=== PATIENT | male | born 1950 | race Caucasian/White ===

== ENCOUNTER 2024-02-15 14:23 | Inpatient (IN) | payer OTHER, MEDICARE ==
[2024-02-15] MEDS ORDERED: Glucagon 1 MG/ML KIT IM PRN (18:50)
[2024-02-15] MEDS ORDERED: Ondansetron ODT 4 MG TAB SL PRN (18:52)
[2024-02-15] MEDS ORDERED: Acetaminophen 325 MG TAB PO PRN ×2 (18:52→21:05)
[2024-02-15] MEDS ORDERED: Senokot S 8.6-50 MG TAB PO PRN (18:52)
[2024-02-15] MEDS ORDERED: tiZANidine HCl 4 MG TAB PO PRN (20:52)
[2024-02-15] MEDS ORDERED: traMADol HCl 50 MG TAB PO PRN (20:52)
[2024-02-15] MEDS ORDERED: Artificial Tear Ophth Sol 15 ML BOT EA EYE PRN (21:05)
[2024-02-15] MEDS: Apixaban 5 MG TAB PO SCH (21:40)
[2024-02-15] MEDS: Lantus 1000 UNITS/10 ML VIAL SC SCH (21:40)
[2024-02-15] MEDS: Sucralfate 1 GM TAB PO SCH (21:40)
[2024-02-15] MEDS: Diclofenac 1% 100 GM Topical GEL TP SCH (21:40)
[2024-02-15] MEDS: Nystatin 500,000 UNITS/5 ML UDCUP SSW SCH (21:40)
[2024-02-15] MEDS: HYDROcodone/Acetaminophen 10/325 mg Tablet PO PRN (21:40)
[2024-02-15] MEDS: Atorvastatin Calcium 40 MG TAB PO SCH (21:40)
[2024-02-15] MEDS: Methocarbamol 500 MG TAB PO PRN (21:40)
[2024-02-15] MEDS: CEFAZOLIN 2 GM in Sodium Chloride 0.9% 100 ML IVPB SCH (22:46)
[2024-02-16] MEDS: CEFAZOLIN 2 GM in Sodium Chloride 0.9% 100 ML IVPB SCH (04:02)
[2024-02-16 06:04] LABS: ALT (SGPT) Less than 7 U/L (8-55); AST (SGOT) 12 U/L (5-34); Albumin 1.8 g/dL (3.4-4.8); Alkaline Phosphatase 153 U/L (40-110); Anion Gap 14 mmol/L (10-20); BUN (Urea Nitrogen) 12 mg/dL (8.4-25.7); Bilirubin, Total 0.4 mg/dL (0.2-1.2); Calc. Creatinine Clearance 151 mL/min (70-130); Calcium 8.2 mg/dL (7.8-10.44); Carbon Dioxide 27 mmol/L (23-31); Chloride 96 mmol/L (98-107); Estimated GFR 97; Globulin 4.9 g/dL (2.4-3.5); Glucose 177 mg/dL (83-110); Potassium 3.9 mmol/L (3.5-5.1); Protein, Total 6.7 g/dL (5.8-8.1); Sodium 133 mmol/L (136-145)
[2024-02-16] MEDS: Insulin Lispro 100 UNIT/ML 10 ML VIAL SC PRN (06:05)
[2024-02-16 06:15] LABS: #Basophils 0.1 thou/uL (0.0-0.2); #Eosinophils 0.3 thou/uL (0.0-0.7); #Lymphocytes 1.1 thou/uL (1.20-3.40); #Monocytes 0.9 thou/uL (0.11-0.59); #Neutrophils 8.3 thou/uL (1.40-6.50); %Basophils 1.2 % (0.0-1.0); %Lymphocytes 10.1 % (21.0-51.0); %Monocytes 8.1 % (0.0-10.0); %Neutrophils 77.6 % (42.0-75.0); Hematocrit 27.7 % (42.0-52.0); Hemoglobin 8.1 g/dL (14.0-18.0); Mean Corpuscular HGB CONC 29.4 g/dL (32.0-36.0); Mean Corpuscular Hemoglobin 22.3 pg (27.0-31.0); Mean Corpuscular Volume 75.7 fl (78.0-98.0); Mean Platelet Volume 6.7 fL (7.4-10.4); Platelet Count 349 10x3/uL (130-400); RBC Distribution Width 15.3 % (11.5-14.5); Red Blood Cell (RBC) Count 3.66 mill/uL (4.70-6.10); White Blood Cell (WBC) Count 10.7 10x3/uL (4.8-10.8)
[2024-02-16] MEDS: Ferrous Sulfate 325 MG TAB PO SCH (08:10)
[2024-02-16] MEDS: Empagliflozin 10 MG TAB PO SCH (08:10)
[2024-02-16] MEDS: DULoxetine 20 MG CAP PO SCH (08:11)
[2024-02-16] MEDS: metFORMIN 500 MG TAB PO SCH (08:11)
[2024-02-16] MEDS: Lisinopril 20 MG TAB PO SCH (08:12)
[2024-02-16] MEDS: Meloxicam 7.5 MG TAB PO SCH (08:12)
[2024-02-16] MEDS: Polyethylene Glycol 3350 17 GM Packet PO SCH (08:13)
[2024-02-16] MEDS: Pantoprazole 40 MG DR.TAB PO SCH (08:13)
[2024-02-16] MEDS: Insulin Lispro 100 UNIT/ML 10 ML VIAL SC SCH (08:15)
[2024-02-16] MEDS: FLU (Fluad Triv) TS24-25 (65UP)/MF59C/PF 45 MCG/0.5 ML Syringe IM ONE (08:20)
[2024-02-17] MEDS: Insulin Lispro 100 UNIT/ML 10 ML VIAL SC SCH ×2 (12:15→16:46)
[2024-02-17] MEDS: traMADol HCl 50 MG TAB PO PRN (14:39)
[2024-02-18] MEDS ORDERED: Loperamide HCl 2 MG CAP PO PRN (09:34)
[2024-02-19] MEDS: Dextrose 50% Abboject 50 ML SYRINGE SLOW IVP PRN (16:48)
[2024-02-19] MEDS: Insulin Lispro 100 UNIT/ML 10 ML VIAL SC SCH (18:02)
[2024-02-20] MEDS: Lantus 1000 UNITS/10 ML VIAL SC SCH (21:31)
[2024-02-20] MEDS: Insulin Lispro 100 UNIT/ML 10 ML VIAL SC PRN (21:34)
[2024-02-22] MEDS: Diclofenac 1% 100 GM Topical GEL TP PRN (08:01)
[2024-02-22] MEDS: Melatonin 3 MG TAB PO SCH (20:53)
[2024-02-23 05:53] LABS: #Basophils 0.1 thou/uL (0.0-0.2); #Eosinophils 0.4 thou/uL (0.0-0.7); #Lymphocytes 1.1 thou/uL (1.20-3.40); #Monocytes 0.7 thou/uL (0.11-0.59); #Neutrophils 5.2 thou/uL (1.40-6.50); %Basophils 0.9 % (0.0-1.0); %Eosinophils 4.8 % (0.0-10.0); %Lymphocytes 14.4 % (21.0-51.0); %Monocytes 9.2 % (0.0-10.0); %Neutrophils 70.7 % (42.0-75.0); Hemoglobin 7.9 g/dL (14.0-18.0); Mean Corpuscular HGB CONC 29.1 g/dL (32.0-36.0); Mean Corpuscular Volume 75.4 fl (78.0-98.0); Mean Platelet Volume 6.7 fL (7.4-10.4); Platelet Count 323 10x3/uL (130-400); RBC Distribution Width 15.4 % (11.5-14.5); Red Blood Cell (RBC) Count 3.58 mill/uL (4.70-6.10); White Blood Cell (WBC) Count 7.3 10x3/uL (4.8-10.8)
[2024-02-23 06:08] LABS: ALT (SGPT) Less than 7 U/L (8-55); AST (SGOT) 11 U/L (5-34); Alkaline Phosphatase 143 U/L (40-110); Anion Gap 14 mmol/L (10-20); BUN (Urea Nitrogen) 10 mg/dL (8.4-25.7); Bilirubin, Total 0.3 mg/dL (0.2-1.2); Calc. Creatinine Clearance 127 mL/min (70-130); Calcium 8.9 mg/dL (7.8-10.44); Carbon Dioxide 26 mmol/L (23-31); Chloride 102 mmol/L (98-107); Estimated GFR 94; Globulin 5.4 g/dL (2.4-3.5); Glucose 126 mg/dL (83-110); Potassium 4.5 mmol/L (3.5-5.1); Protein, Total 7.4 g/dL (5.8-8.1); Sodium 137 mmol/L (136-145)
[2024-02-23] MEDS ORDERED: Lisinopril 20 MG TAB PO SCH (09:43)
[2024-02-23 12:20] LABS: CRP,High Sensitivity (Inhouse) 3.29 mg/dL (< or = 0.5)
[2024-02-24] MEDS: Ascorbic Acid 500 mg Chewable Tablet PO SCH (08:21)
[2024-02-24] MEDS: Empagliflozin 25 MG TAB PO SCH (08:22)
[2024-02-24] MEDS: Lisinopril 20 MG TAB PO SCH (08:22)
[2024-02-24] MEDS ORDERED: Polyethylene Glycol 3350 17 GM Packet PO PRN (09:34)
[2024-02-25] MEDS: Lantus 1000 UNITS/10 ML VIAL SC SCH (20:32)
[2024-02-26 05:56] LABS: #Basophils 0.1 thou/uL (0.0-0.2); #Eosinophils 0.4 thou/uL (0.0-0.7); #Lymphocytes 1.2 thou/uL (1.20-3.40); #Monocytes 0.7 thou/uL (0.11-0.59); #Neutrophils 4.8 thou/uL (1.40-6.50); %Basophils 0.8 % (0.0-1.0); %Eosinophils 5.4 % (0.0-10.0); %Lymphocytes 16.5 % (21.0-51.0); %Monocytes 10.2 % (0.0-10.0); %Neutrophils 67.2 % (42.0-75.0); Hematocrit 28.5 % (42.0-52.0); Hemoglobin 8.3 g/dL (14.0-18.0); Mean Corpuscular Hemoglobin 21.8 pg (27.0-31.0); Mean Platelet Volume 6.5 fL (7.4-10.4); Platelet Count 290 10x3/uL (130-400); RBC Distribution Width 15.5 % (11.5-14.5); Red Blood Cell (RBC) Count 3.79 mill/uL (4.70-6.10); White Blood Cell (WBC) Count 7.2 10x3/uL (4.8-10.8)
[2024-02-27] MEDS: NIFEdipine XL 30 MG ER.TAB PO SCH (08:55)
[2024-02-28] MEDS: Sucralfate 1 GM TAB PO SCH (15:04)
[2024-03-01 06:04] LABS: #Eosinophils 0.4 thou/uL (0.0-0.7); #Lymphocytes 1.1 thou/uL (1.20-3.40); #Monocytes 0.6 thou/uL (0.11-0.59); #Neutrophils 4.3 thou/uL (1.40-6.50); %Basophils 0.6 % (0.0-1.0); %Eosinophils 6.7 % (0.0-10.0); %Lymphocytes 16.5 % (21.0-51.0); %Monocytes 9.8 % (0.0-10.0); %Neutrophils 66.4 % (42.0-75.0); Hematocrit 31.9 % (42.0-52.0); Hemoglobin 9.1 g/dL (14.0-18.0); Mean Corpuscular HGB CONC 28.4 g/dL (32.0-36.0); Mean Corpuscular Hemoglobin 21.1 pg (27.0-31.0); Mean Corpuscular Volume 74.2 fl (78.0-98.0); Mean Platelet Volume 5.9 fL (7.4-10.4); Platelet Count 362 10x3/uL (130-400); RBC Distribution Width 15.5 % (11.5-14.5); White Blood Cell (WBC) Count 6.5 10x3/uL (4.8-10.8)
[2024-03-01 06:18] LABS: ALT (SGPT) Less than 7 U/L (8-55); AST (SGOT) 16 U/L (5-34); Albumin 2.5 g/dL (3.4-4.8); Alkaline Phosphatase 168 U/L (40-110); Anion Gap 16 mmol/L (10-20); BUN (Urea Nitrogen) 16 mg/dL (8.4-25.7); Bilirubin, Total 0.4 mg/dL (0.2-1.2); Calc. Creatinine Clearance 139 mL/min (70-130); Calcium 9.5 mg/dL (7.8-10.44); Carbon Dioxide 26 mmol/L (23-31); Chloride 99 mmol/L (98-107); Estimated GFR 95; Glucose 128 mg/dL (83-110); Potassium 4.2 mmol/L (3.5-5.1); Protein, Total 8.5 g/dL (5.8-8.1); Sodium 137 mmol/L (136-145)
[2024-03-01 11:43] LABS: CRP,High Sensitivity (Inhouse) 5.97 mg/dL (< or = 0.5)
[2024-03-02] MEDS: NIFEdipine XL 30 MG ER.TAB PO SCH (11:15)
[2024-03-03 05:14] VITALS: BMI 31.6
[2024-03-03 05:37] LABS: #Basophils 0.1 thou/uL (0.0-0.2); #Eosinophils 0.4 thou/uL (0.0-0.7); #Monocytes 0.6 thou/uL (0.11-0.59); #Neutrophils 3.6 thou/uL (1.40-6.50); %Eosinophils 6.9 % (0.0-10.0); %Lymphocytes 18.5 % (21.0-51.0); %Monocytes 10.3 % (0.0-10.0); %Neutrophils 63.2 % (42.0-75.0); Hematocrit 33.4 % (42.0-52.0); Hemoglobin 9.4 g/dL (14.0-18.0); Mean Corpuscular Hemoglobin 20.9 pg (27.0-31.0); Mean Corpuscular Volume 74.7 fl (78.0-98.0); Mean Platelet Volume 5.9 fL (7.4-10.4); Platelet Count 363 10x3/uL (130-400); RBC Distribution Width 15.5 % (11.5-14.5); Red Blood Cell (RBC) Count 4.47 mill/uL (4.70-6.10); White Blood Cell (WBC) Count 5.6 10x3/uL (4.8-10.8)
[2024-03-03 05:50] LABS: Anion Gap 15 mmol/L (10-20); BUN (Urea Nitrogen) 16 mg/dL (8.4-25.7); Calc. Creatinine Clearance 124 mL/min (70-130); Calcium 9.5 mg/dL (7.8-10.44); Carbon Dioxide 25 mmol/L (23-31); Chloride 98 mmol/L (98-107); Estimated GFR 94; Glucose 180 mg/dL (83-110); Potassium 4.2 mmol/L (3.5-5.1); Sodium 134 mmol/L (136-145)
[2024-03-03] MEDS: NIFEdipine XL 60 MG ER.TAB PO SCH (07:48)
[2024-03-03 15:19] LABS: CRP,High Sensitivity (Inhouse) 5.57 mg/dL (< or = 0.5)
[2024-03-05] MEDS: Lantus 1000 UNITS/10 ML VIAL SC SCH ×2 (13:53→21:59)
[2024-03-06] MEDS: Lantus 1000 UNITS/10 ML VIAL SC SCH (21:05)
[2024-03-07] MEDS: CEFAZOLIN 2 GM in Sodium Chloride 0.9% 100 ML IVPB SCH (08:14)
[2024-03-10 06:27] LABS: #Basophils 0.1 thou/uL (0.0-0.2); #Eosinophils 0.5 thou/uL (0.0-0.7); #Lymphocytes 1.3 thou/uL (1.20-3.40); #Monocytes 0.6 thou/uL (0.11-0.59); #Neutrophils 3.6 thou/uL (1.40-6.50); %Basophils 1.3 % (0.0-1.0); %Eosinophils 7.6 % (0.0-10.0); %Lymphocytes 21.6 % (21.0-51.0); %Monocytes 10.2 % (0.0-10.0); %Neutrophils 59.4 % (42.0-75.0); Hematocrit 34.1 % (42.0-52.0); Hemoglobin 9.7 g/dL (14.0-18.0); Mean Corpuscular HGB CONC 28.5 g/dL (32.0-36.0); Mean Corpuscular Volume 73.5 fl (78.0-98.0); Mean Platelet Volume 6.1 fL (7.4-10.4); Platelet Count 368 10x3/uL (130-400); RBC Distribution Width 15.6 % (11.5-14.5); Red Blood Cell (RBC) Count 4.64 mill/uL (4.70-6.10); White Blood Cell (WBC) Count 6.1 10x3/uL (4.8-10.8)
[2024-03-10 06:38] LABS: ALT (SGPT) 8 U/L (8-55); AST (SGOT) 17 U/L (5-34); Albumin 2.8 g/dL (3.4-4.8); Alkaline Phosphatase 178 U/L (40-110); Anion Gap 13 mmol/L (10-20); BUN (Urea Nitrogen) 25 mg/dL (8.4-25.7); Bilirubin, Total 0.3 mg/dL (0.2-1.2); Calc. Creatinine Clearance 133 mL/min (70-130); Calcium 9.8 mg/dL (7.8-10.44); Carbon Dioxide 25 mmol/L (23-31); Chloride 100 mmol/L (98-107); Estimated GFR 94; Globulin 5.9 g/dL (2.4-3.5); Glucose 134 mg/dL (83-110); Potassium 4.4 mmol/L (3.5-5.1); Protein, Total 8.7 g/dL (5.8-8.1); Sodium 134 mmol/L (136-145)
[2024-03-11] MEDS: Lantus 1000 UNITS/10 ML VIAL SC SCH (20:11)
[2024-03-15 05:56] LABS: #Eosinophils 0.4 thou/uL (0.0-0.7); #Lymphocytes 1.2 thou/uL (1.20-3.40); #Monocytes 0.6 thou/uL (0.11-0.59); #Neutrophils 4.1 thou/uL (1.40-6.50); %Basophils 0.6 % (0.0-1.0); %Lymphocytes 19.4 % (21.0-51.0); %Monocytes 9.5 % (0.0-10.0); %Neutrophils 64.5 % (42.0-75.0); Hematocrit 34.4 % (42.0-52.0); Hemoglobin 9.7 g/dL (14.0-18.0); Mean Corpuscular HGB CONC 28.3 g/dL (32.0-36.0); Mean Corpuscular Hemoglobin 20.8 pg (27.0-31.0); Mean Corpuscular Volume 73.6 fl (78.0-98.0); Mean Platelet Volume 6.1 fL (7.4-10.4); Platelet Count 363 10x3/uL (130-400); RBC Distribution Width 15.3 % (11.5-14.5); Red Blood Cell (RBC) Count 4.68 mill/uL (4.70-6.10); White Blood Cell (WBC) Count 6.3 10x3/uL (4.8-10.8)
[2024-03-15 06:14] LABS: ALT (SGPT) Less than 4 U/L (Less than 45); AST (SGOT) 26 U/L (11-34); Alkaline Phosphatase 179 U/L (40-110); Anion Gap 13 mmol/L (10-20); BUN (Urea Nitrogen) 25 mg/dL (8.4-25.7); Bilirubin, Total 0.3 mg/dL (0.3-1.2); Calc. Creatinine Clearance 125 mL/min (70-130); Calcium 9.8 mg/dL (7.8-10.44); Carbon Dioxide 27 mmol/L (23-31); Chloride 101 mmol/L (98-107); Estimated GFR 92; Globulin 5.5 g/dL (2.4-3.5); Glucose 120 mg/dL (83-110); Potassium 4.8 mmol/L (3.5-5.1); Protein, Total 8.5 g/dL (5.8-8.1); Sodium 136 mmol/L (136-145)
[2024-03-15 11:30] LABS: CRP,High Sensitivity (Inhouse) 1.95 mg/dL (< or = 0.5)
[2024-03-16] MEDS: Moisturizing Cream (Eucerin) 113 GM JAR TOP PRN (11:49)
[2024-03-17] MEDS: HYDROcodone/Acetaminophen 10/325 mg Tablet PO PRN (19:40)
[2024-03-21 11:33] VITALS: BMI 32.3
[2024-03-22 06:05] LABS: #Basophils 0.1 thou/uL (0.0-0.2); #Eosinophils 0.4 thou/uL (0.0-0.7); #Lymphocytes 1.2 thou/uL (1.20-3.40); #Monocytes 0.7 thou/uL (0.11-0.59); #Neutrophils 4.4 thou/uL (1.40-6.50); %Eosinophils 5.4 % (0.0-10.0); %Lymphocytes 17.5 % (21.0-51.0); %Neutrophils 65.1 % (42.0-75.0); Hemoglobin 9.8 g/dL (14.0-18.0); Mean Corpuscular HGB CONC 28.7 g/dL (32.0-36.0); Mean Corpuscular Hemoglobin 20.9 pg (27.0-31.0); Mean Corpuscular Volume 72.7 fl (78.0-98.0); Mean Platelet Volume 6.4 fL (7.4-10.4); Platelet Count 334 10x3/uL (130-400); RBC Distribution Width 15.2 % (11.5-14.5); Red Blood Cell (RBC) Count 4.68 mill/uL (4.70-6.10); White Blood Cell (WBC) Count 6.7 10x3/uL (4.8-10.8)
[2024-03-22 06:10] LABS: ALT (SGPT) Less than 4 U/L (Less than 45); AST (SGOT) 38 U/L (11-34); Albumin 3.2 g/dL (3.1-4.5); Alkaline Phosphatase 154 U/L (40-110); Anion Gap 13 mmol/L (10-20); BUN (Urea Nitrogen) 30 mg/dL (8.4-25.7); Bilirubin, Total 0.4 mg/dL (0.3-1.2); Calc. Creatinine Clearance 121 mL/min (70-130); Calcium 10.2 mg/dL (7.8-10.44); Carbon Dioxide 25 mmol/L (23-31); Chloride 103 mmol/L (98-107); Estimated GFR 92; Glucose 71 mg/dL (83-110); Potassium 4.5 mmol/L (3.5-5.1); Protein, Total 8.2 g/dL (5.8-8.1); Sodium 136 mmol/L (136-145)
[2024-03-22 07:44] VITALS: BP 135/85; TEMP 97.8
[2024-03-22 12:49] LABS: CRP,High Sensitivity (Inhouse) 1.61 mg/dL (< or = 0.5)
== END 2024-03-22 14:20 | disposition home health service (06) | DRG 560 ==
LOC: NAV ACUTE 18:35 → UNDOADMIN 18:35 → NAV ACUTE 03-02 01:57
PROVIDERS: ADMIT Family Medicine; ATTEND Family Medicine
DX: T84.59XA Infection and inflammatory reaction due to other internal joint prosthesis, initial encounter (principal); M86.9 Osteomyelitis, unspecified; I10 Essential (primary) hypertension; E11.9 Type 2 diabetes mellitus without complications; G47.33 Obstructive sleep apnea (adult) (pediatric); E78.5 Hyperlipidemia, unspecified; Z88.0 Allergy status to penicillin; Z88.2 Allergy status to sulfonamides; Z79.899 Other long term (current) drug therapy
CPT/HCPCS: 36415; 36416; 80048; 80053; 85025; 86141; 97602; J1815; J7999